=== PATIENT | male | born 1980 | race Caucasian/White ===

== ENCOUNTER 2024-01-02 11:24 | Emergency (ER) | payer MEDICAID, OTHER ==
[~2024-01-02] VITALS: Ht 190.5 cm; Wt 113.0 kg
[~2024-01-02 11:24] MED LIST: CYCL-1 PO; CYCL-394 PO; HYDR-3565 PO
[2024-01-02] MEDS ORDERED: AMOX500C2 PO (13:31)
[2024-01-02] MEDS: CefTRIAXone 1000mg IM Kit (w/lidocaine diluent) IM ONE (13:39)
[2024-01-02 13:50] VITALS: BP 118/78; PULSE 78; RESP 16; TEMP 98.2; O2SAT 99
== END 2024-01-02 13:50 | disposition home or self-care (01) ==
LOC: ER 11:24
DX: K04.7 Periapical abscess without sinus (principal); G89.29 Other chronic pain; M54.9 Dorsalgia, unspecified; Z79.2 Long term (current) use of antibiotics
CPT/HCPCS: 96372; 99283; J0696